=== PATIENT | male | born 1985 | race Hispanic/Latino ===

== ENCOUNTER 2019-03-09 06:45 | Emergency (ER) | payer SELFPAY ==
[2019-03-09] MEDS ORDERED: dexAMETHasone 10 MG/ML VIAL ONE (08:17)
[2019-03-09] MEDS ORDERED: CEFTRIAXONE 1000 MG/VIAL ONE (08:17)
--- NOTE | 2019-03-09 08:17 | ER ---
Nurse's Notes [facility] Name: Rahul Acevedo Age: 33 yrs Sex: Male : 1985 Arrival Date: 03/09/2019 Time: 06:48 Bed 14 Private MD: Diagnosis: Acute pharyngitis Presentation: 03/09 07:01 Presenting complaint: Patient states: i feel like my throat is swollen or theres a lump tw2 in my throat, i threw up this morning 2 times with blood in it. Transition of care: patient was not received from another setting of care. Onset of symptoms was March 09, 2019. Risk Assessment: Do you want to hurt yourself or someone else? Patient reports no desire to harm self or others. Initial Sepsis Screen: Does the patient meet any 2 criteria? No. Patient's initial sepsis screen is negative. Does the patient have a suspected source of infection? No. Patient's initial sepsis screen is negative. Care prior to arrival: None. 07:01 Method Of Arrival: Ambulatory tw2 07:01 Acuity: RHONDA 3 tw2 Triage Assessment: 07:03 General: Appears in no apparent distress. well groomed, Behavior is calm, cooperative, tw2 appropriate for age. Pain: Complains of pain in uvula, left aspect of posterior pharynx and right aspect of posterior pharynx. Historical: - Allergies: 07:04 No Known Allergies; tw2 - Home Meds: 07:04 None [Active]; tw2 - PMHx: 07:04 None; tw2 - PSHx: 07:04 None; tw2 - Immunization history:: Adult Immunizations. - Social history:: Smoking status: . - Ebola Screening: : Patient denies travel to an Ebola-affected area in the 21 days before illness onset. - Family history:: not pertinent. Screenin:57 Abuse screen: Denies threats or abuse. Nutritional screening: No deficits noted. tw2 Tuberculosis screening: No symptoms or risk factors identified. Fall Risk None identified. Assessment: 07:04 General: Appears in no apparent distress. well groomed, Behavior is calm, cooperative, tw2 appropriate for age. Pain: Complains of pain in uvula, left aspect of posterior pharynx and right aspect of posterior pharynx. Neuro: Level of Consciousness is awake, alert, obeys commands, Oriented to person, place, time, situation. Cardiovascular: Heart tones S1 S2 Capillary refill Patient's skin is warm and dry. Respiratory: Airway is patent Respiratory effort is even, unlabored, Respiratory pattern is regular, symmetrical, Breath sounds are clear bilaterally. GI: Abdomen is flat, non-distended, Bowel sounds present X 4 quads. Reports vomiting, with blood in it. GI: Patient currently denies abdominal pain. : No signs and/or symptoms were reported regarding the genitourinary system. EENT: Throat is reddened has enlarged tonsils. Derm: No signs and/or symptoms reported regarding the dermatologic system. Musculoskeletal: Range of motion: intact in all extremities. 08:00 Reassessment: Patient appears in no apparent distress at this time. No changes from tw2 previously documented assessment. Patient and/or family updated on plan of care and expected duration. Pain level reassessed. Patient is alert, oriented x 3, equal unlabored respirations, skin warm/dry/pink. 09:02 Reassessment: Patient appears in no apparent distress at this time. No changes from tw2 previously documented assessment. Patient and/or family updated on plan of care and expected duration. Pain level reassessed. Patient is alert, oriented x 3, equal unlabored respirations, skin warm/dry/pink. 09:20 Reassessment: Patient appears in no apparent distress at this time. No changes from tw2 previously documented assessment. Patient and/or family updated on plan of care and expected duration. Pain level reassessed. Patient is alert, oriented x 3, equal unlabored respirations, skin warm/dry/pink. Vital Signs: 07:02 BP 128 / 86; Pulse 93; Resp 18; Temp 98.2(O); Pulse Ox 99% on R/A; Weight 95.25 kg (R); tw2 Height 5 ft. 6 in. (167.64 cm); Pain 8/10; 08:00 BP 123 / 72; Pulse 87; Resp 17; Pulse Ox 100% on R/A; tw2 09:01 BP 123 / 73; Pulse 76; Resp 17; Pulse Ox 100% on R/A; tw2 07:02 Body Mass Index 33.89 (95.25 kg, 167.64 cm) tw2 ED Course: 06:48 Patient arrived in ED. ds1 06:56 Pascale Davis, RN is Primary Nurse. tw2 06:56 Bed in low position. Call light in reach. tw2 07:02 Triage completed. tw2 07:03 Arm band placed on. tw2 07:18 Deshawn Suárez MD is Attending Physician. bishnu 08:22 Awaiting radiology results. Awaiting for x-ray, Awaiting: PRIOR to discharge. tw2 08:27 X-ray completed. Portable x-ray completed in exam room. Patient tolerated procedure jb2 well. 08:30 Chest Single View XRAY In Process Unspecified. EDMS 09:20 No provider procedures requiring assistance completed. Patient did not have IV access tw2 during this emergency room visit. Administered Medications: 08:25 Drug: Decadron 10 mg Route: IM; Site: left deltoid; tw2 09:20 Follow up: Response: No adverse reaction tw2 08:25 Drug: Rocephin (cefTRIAXone) 1 grams Route: IM; Site: right deltoid; tw2 09:20 Follow up: Response: No adverse reaction tw2 08:28 Drug: Augmentin 875 mg Route: PO; tw2 09:20 Follow up: Response: No adverse reaction tw2 Outcome: 08:17 Discharge ordered by . bishnu 09:20 Discharged to home ambulatory. tw2 09:20 Condition: stable 09:20 Discharge instructions given to patient, Instructed on discharge instructions, follow up and referral plans. medication usage, Demonstrated understanding of instructions, follow-up care, medications, Prescriptions given X 3. 09:21 Patient left the ED. tw2 Signatures: Dispatcher [employer] EDNJ Deshawn Suárez MD MD cha Buechter, Jesse Sammie Jacobson ds1 Pascale Davis, RN RN tw2
--- NOTE | 2019-03-09 08:17 | EDPHYS ---
Physician Documentation [facility] Name: Rahul Acevedo Age: 33 yrs Sex: Male : 1985 Arrival Date: 03/09/2019 Time: 06:48 Bed 14 Private MD: ED Physician Deshawn Suárez HPI: 03/09 08:13 This 33 yrs old Male presents to ER via Ambulatory with complaints of Vomiting bishnu Blood, Tongue Pain. 08:13 The patient or guardian reports cough, difficulty breathing. Onset: The bishnu symptoms/episode began/occurred 2 day(s) ago. Modifying factors: The symptoms are alleviated by nothing. the symptoms are aggravated by nothing. The patient or guardian reports airway noise. Severity of symptoms: At their worst the symptoms were mild, in the emergency department the symptoms are unchanged. Associated signs and symptoms: The patient has no apparent associated signs or symptoms. Modifying factors: The symptoms are alleviated by nothing, the symptoms are aggravated by nothing. Severity of symptoms: At their worst the symptoms were mild in the emergency department the symptoms are unchanged. Historical: - Allergies: 07:04 No Known Allergies; tw2 - Home Meds: 07:04 None [Active]; tw2 - PMHx: 07:04 None; tw2 - PSHx: 07:04 None; tw2 - Immunization history:: Adult Immunizations. - Social history:: Smoking status: . - Ebola Screening: : Patient denies travel to an Ebola-affected area in the 21 days before illness onset. - Family history:: not pertinent. ROS: 08:13 Constitutional: Negative for fever, chills, and weight loss, Eyes: Negative for injury, bishnu pain, redness, and discharge, Neck: Negative for injury, pain, and swelling, Cardiovascular: Negative for chest pain, palpitations, and edema, Abdomen/GI: Negative for abdominal pain, nausea, vomiting, diarrhea, and constipation, Back: Negative for injury and pain, : Negative for injury, bleeding, discharge, and swelling, MS/Extremity: Negative for injury and deformity, Skin: Negative for injury, rash, and discoloration, Neuro: Negative for headache, weakness, numbness, tingling, and seizure, Psych: Negative for depression, anxiety, suicide ideation, homicidal ideation, and hallucinations, Allergy/Immunology: Negative for hives, rash, and allergies, Endocrine: Negative for neck swelling, polydipsia, polyuria, polyphagia, and marked weight changes, Hematologic/Lymphatic: Negative for swollen nodes, abnormal bleeding, and unusual bruising. 08:13 ENT: Positive for difficulty swallowing. 08:13 Respiratory: Positive for cough. Exam: 08:13 Constitutional: This is a well developed, well nourished patient who is awake, alert, bishnu and in no acute distress. Head/Face: Normocephalic, atraumatic. Eyes: Pupils equal round and reactive to light, extra-ocular motions intact. Lids and lashes normal. Conjunctiva and sclera are non-icteric and not injected. Cornea within normal limits. Periorbital areas with no swelling, redness, or edema. Neck: Trachea midline, no thyromegaly or masses palpated, and no cervical lymphadenopathy. Supple, full range of motion without nuchal rigidity, or vertebral point tenderness. No Meningismus. Chest/axilla: Normal chest wall appearance and motion. Nontender with no deformity. No lesions are appreciated. Cardiovascular: Regular rate and rhythm with a normal S1 and S2. No gallops, murmurs, or rubs. Normal PMI, no JVD. No pulse deficits. Respiratory: Lungs have equal breath sounds bilaterally, clear to auscultation and percussion. No rales, rhonchi or wheezes noted. No increased work of breathing, no retractions or nasal flaring. Abdomen/GI: Soft, non-tender, with normal bowel sounds. No distension or tympany. No guarding or rebound. No evidence of tenderness throughout. Back: No spinal tenderness. No costovertebral tenderness. Full range of motion. Skin: Warm, dry with normal turgor. Normal color with no rashes, no lesions, and no evidence of cellulitis. MS/ Extremity: Pulses equal, no cyanosis. Neurovascular intact. Full, normal range of motion. Neuro: Awake and alert, GCS 15, oriented to person, place, time, and situation. Cranial nerves II-XII grossly intact. Motor strength 5/5 in all extremities. Sensory grossly intact. Cerebellar exam normal. Normal gait. Psych: Awake, alert, with orientation to person, place and time. Behavior, mood, and affect are within normal limits. 08:13 ENT: Posterior pharynx: Tonsils: bilaterally enlarged, with erythema, Uvula: midline, edematous, erythema, swelling, that is mild, that is moderate, erythema, that is mild, exudate, is not appreciated, peritonsillar mass, is not appreciated, pooling of secretions, is not appreciated. Vital Signs: 07:02 BP 128 / 86; Pulse 93; Resp 18; Temp 98.2(O); Pulse Ox 99% on R/A; Weight 95.25 kg (R); tw2 Height 5 ft. 6 in. (167.64 cm); Pain 8/10; 08:00 BP 123 / 72; Pulse 87; Resp 17; Pulse Ox 100% on R/A; tw2 09:01 BP 123 / 73; Pulse 76; Resp 17; Pulse Ox 100% on R/A; tw2 07:02 Body Mass Index 33.89 (95.25 kg, 167.64 cm) tw2 MDM: 07:18 Patient medically screened. [facility] 08:16 Data reviewed: vital signs, nurses notes, radiologic studies. [facility] 03/09 08:13 Order name: Chest Single View XRAY [facility] Administered Medications: 08:25 Drug: Decadron 10 mg Route: IM; Site: left deltoid; tw2 09:20 Follow up: Response: No adverse reaction tw2 08:25 Drug: Rocephin (cefTRIAXone) 1 grams Route: IM; Site: right deltoid; tw2 09:20 Follow up: Response: No adverse reaction tw2 08:28 Drug: Augmentin 875 mg Route: PO; tw2 09:20 Follow up: Response: No adverse reaction 2 Disposition: 03/09/19 08:17 Discharged to Home. Impression: Acute pharyngitis. - Condition is Stable. - Discharge Instructions: Pharyngitis, Pharyngitis, [id number], Sore Throat, [id number]. - Prescriptions for Augmentin 875- 125 mg Oral Tablet - take 1 tablet by ORAL route every 12 hours for 10 days; 20 tablet. Elyssa- D 12 Hour 60-120 mg Oral Tablet Sustained Release 12 hr - take 1 tablet by ORAL route every 12 hours As needed; 20 tablet. Medrol (Blaine) 4 mg Oral Tablets, Dose Pack - take 1 tablet by ORAL route as directed - follow package instructions; 1 packet. - Medication Reconciliation Form, Thank You Letter, Antibiotic Education, Prescription Opioid Use, Work release form form. - Follow up: Private Physician; When: 2 - 3 days; Reason: Recheck today's complaints, Continuance of care, Re-evaluation by your physician. - Problem is new. - Symptoms have improved. Signatures: Dispatcher [employer] EDDeshawn Brumfield MD MD cha Wise, Tara RN RN tw2 Corrections: (The following items were deleted from the chart) 09:21 08:17 03/09/2019 08:17 Discharged to Home. Impression: Acute pharyngitis. Condition is tw2 Stable. Forms are Work release form, Medication Reconciliation Form, Thank You Letter, Antibiotic Education, Prescription Opioid Use. Follow up: Private Physician; When: 2 - 3 days; Reason: Recheck today's complaints, Continuance of care, Re-evaluation by your physician. Problem is new. Symptoms have improved. bishnu
[2019-03-09] MEDS ORDERED: AMOX/K CLAV 875 MG TAB ONE (08:18)
[2019-03-09] MEDS ORDERED: WATER FOR INJ,STERILE 10 ML ONE (08:18)
--- NOTE | 2019-03-09 09:24 | RAD REPORT ---
EXAM DESCRIPTION: RAD - Chest Single View - 03/09/2019 8:28 am CLINICAL HISTORY: Cough COMPARISON: None. TECHNIQUE: AP portable chest image was obtained 0822 hours . FINDINGS: Lungs are under inflated. This accentuates interstitial pattern. Focal consolidation, fail ure and volume overload are not suspected. Heart and vasculature are normal. No measurable pleural ef fusion and no pneumothorax. No acute bony abnormality seen. No acute aortic findings suspected. IMPRESSION: No acute cardiopulmonary process.
[2019-03-09 09:27] VITALS: TEMP 98.2
[2019-03-09 09:28] VITALS: O2SAT 100
[2019-03-09 09:30] VITALS: BP 123/73
== END 2019-03-09 09:21 | disposition home or self-care (01) ==
LOC: ER 06:45
DX: J02.9 Acute pharyngitis, unspecified (principal)
CPT/HCPCS: 71045; 96372; 99283; J1100

== ENCOUNTER 2019-03-25 17:26 | Emergency (ER) | payer SELFPAY ==
[2019-03-25] MEDS ORDERED: CLINDAMYCIN 600MG/D5W 600 MG/50 ML BAG IV ONE (17:39)
[2019-03-25] MEDS ORDERED: KETOROLAC 30 MG/ML INJ ONE (17:39)
[2019-03-25 17:57] LABS: Absolute Lymphocytes (CBC) 1.7 K/uL (0.7-4.9); Basophils % 0.5 % (0-1.3); Hematocrit 38.5 % (39.6-49.0); Lymphocytes % 18.2 % (15.3-44.8); MPV 7.3 fL (7.6-11.3); RBC Red Blood Cell Count 4.19 M/uL (4.33-5.43)
[2019-03-25 18:11] LABS: Potassium 3.8 mmol/L (3.5-5.1)
--- NOTE | 2019-03-25 19:08 | ER ---
Nurse's Notes [facility] Name: Rahul Acevedo Age: 33 yrs Sex: Male : 1985 Arrival Date: 03/25/2019 Time: 17:28 Bed 17 Private MD: Diagnosis: Cellulitis of left upper limb-left hand Presentation: 03/25 17:32 Presenting complaint: Patient states: left hand swelling and redness started last night sv and then today started feeling it on the left ankle. Transition of care: patient was not received from another setting of care. Onset of symptoms was March 24, 2019. Risk Assessment: Do you want to hurt yourself or someone else? Patient reports no desire to harm self or others. Initial Sepsis Screen: Does the patient meet any 2 criteria? HR > 90 bpm. No. Patient's initial sepsis screen is negative. Does the patient have a suspected source of infection? No. Patient's initial sepsis screen is negative. Care prior to arrival: None. 17:32 Method Of Arrival: Ambulatory sv 17:32 Acuity: RHONDA 3 sv Historical: - Allergies: 17:33 No Known Allergies; sv - PMHx: 17:33 None; sv - PSHx: 17:33 None; sv - Immunization history:: Flu vaccine is not up to date. - Social history:: Smoking status: Patient/guardian denies using tobacco. - Ebola Screening: : No symptoms or risks identified at this time. Screenin:55 Abuse screen: Denies threats or abuse. Nutritional screening: No deficits noted. em Tuberculosis screening: No symptoms or risk factors identified. Fall Risk None identified. Assessment: 17:55 General: Appears in no apparent distress. uncomfortable, Behavior is calm, cooperative, em Denies fever. Pain: Complains of pain in left hand and left foot Pain currently is 8 out of 10 on a pain scale. Pain began 1 day ago. Neuro: Level of Consciousness is awake, alert, obeys commands, Oriented to person, place, time, situation, Appropriate for age. Cardiovascular: Capillary refill < 3 seconds Patient's skin is warm and dry. Respiratory: Airway is patent Respiratory effort is even, unlabored, Respiratory pattern is regular, symmetrical. Derm: Skin is intact, is healthy with good turgor, Skin is red, to left hand. Musculoskeletal: Circulation, motion, and sensation intact. Capillary refill < 3 seconds, Range of motion: intact in all extremities, Swelling present in left hand. 19:10 Reassessment: Patient appears in no apparent distress at this time. Patient and/or cc3 family updated on plan of care and expected duration. Pain level reassessed. Patient is alert, oriented x 3, equal unlabored respirations, skin warm/dry/pink. Received this male patient from morning shift [facility] as a case of cellulitis to his left hand, with IV cannula gauge 20 at the right ACV saline locked. Patient denies pain at this time. Patient states feeling better. Patient states symptoms have improved. General: Appears in no apparent distress. comfortable, Behavior is calm, cooperative, appropriate for age. Pain: Complains of pain in dorsum of left hand. Neuro: Level of Consciousness is awake, alert, obeys commands, Oriented to person, place, time, situation, Appropriate for age. Cardiovascular: Denies chest pain, Capillary refill < 3 seconds in bilateral fingers Patient's skin is warm and dry. Respiratory: Airway is patent Respiratory effort is even, unlabored, Respiratory pattern is regular, symmetrical, Breath sounds are clear bilaterally. GI: Abdomen is round non-distended, Bowel sounds present X 4 quads. Abd is soft and non tender X 4 quads. : No signs and/or symptoms were reported regarding the genitourinary system. EENT: No signs and/or symptoms were reported regarding the EENT system. Derm: Skin is intact, is healthy with good turgor, Skin is pink, warm \T\ dry. normal. Musculoskeletal: Circulation, motion, and sensation intact. Range of motion: intact in all extremities, Swelling present in dorsum of left hand. 19:20 Reassessment: Patient appears in no apparent distress at this time. Patient and/or cc3 family updated on plan of care and expected duration. Pain level reassessed. Patient is alert, oriented x 3, equal unlabored respirations, skin warm/dry/pink. JASWANT Puga discharged the patient home with prescription given. IV cannula removed and patient left ER vitally stable and ambulatory. No valuables left in the patient's room. Patient denies pain at this time. Patient states feeling better. Patient states symptoms have improved. Vital Signs: 17:33 BP 146 / 108; Pulse 95; Resp 18; Temp 98.2; Pulse Ox 100% ; Weight 95.25 kg; Height 5 sv ft. 6 in. (167.64 cm); 18:34 BP 139 / 67; Pulse 102; Resp 18; Pulse Ox 99% on R/A; Pain 6/10; em 19:15 BP 139 / 76; Pulse 91; Resp 16 S; Temp 98.4(O); Pulse Ox 99% on R/A; Pain 0/10; cc3 17:33 Body Mass Index 33.89 (95.25 kg, 167.64 cm) sv ED Course: 17:28 Patient arrived in ED. mr 17:31 Polina Puga, XIOMARA is PHCP. kb 17:31 Te Lara MD is Attending Physician. kb 17:33 Triage completed. sv 17:34 Arm band placed on. sv 17:39 Khai Royal LVN is Primary Nurse. em 17:55 Patient has correct armband on for positive identification. Bed in low position. Call em light in reach. Adult w/ patient. Pulse ox on. NIBP on. 17:55 Initial lab(s) drawn, by me, sent to lab. Inserted saline lock: 20 gauge in left em antecubital area, using aseptic technique. Blood collected. 18:07 Hand Left 2 View XRAY In Process Unspecified. EDMS 18:07 Foot Left 2 View XRAY In Process Unspecified. EDMS 19:20 No provider procedures requiring assistance completed. IV discontinued, intact, cc3 bleeding controlled, No redness/swelling at site. Pressure dressing applied. Administered Medications: 17:48 Drug: TORadol - Ketorolac 15 mg Route: IVP; Site: right antecubital; iw 18:33 Follow up: Response: No adverse reaction; Pain is decreased em 17:49 Drug: Clindamycin 600 mg Route: IVPB; Infused Over: 30 mins; Site: right antecubital; em 18:33 Follow up: Response: No adverse reaction; IV Status: Completed infusion; IV Intake: 50mlem Intake: 18:33 IV: 50ml; Total: 50ml. em Outcome: 19:07 Discharge ordered by . kb 19:20 Discharged to home ambulatory. cc3 19:20 Condition: stable 19:20 Discharge instructions given to patient, Instructed on discharge instructions, follow up and referral plans. medication usage, Demonstrated understanding of instructions, follow-up care, medications, Prescriptions given X 1. 19:23 Patient left the ED. cc3 Signatures: Dispatcher [employer] Polina Mathews, XIOMARA DEVLIN-Sayda Leslie, RN RN rishi Angely Cruz, Khai, UPSET WELDING MACHINE OPERATOR UPSET WELDING MACHINE OPERATOR Jessica Arroyo RN RN iw Cordel, Charlene cc3 Corrections: (The following items were deleted from the chart) 23:58 19:10 Reassessment: Patient appears in no apparent distress at this time. Patient cc3 and/or family updated on plan of care and expected duration. Pain level reassessed. Patient is alert, oriented x 3, equal unlabored respirations, skin warm/dry/pink. Received this male patient from morning shift [facility] as a case of cellulitis to his left hand, with IV cannula gauge 20 at the right ACV saline locked. Patient denies pain at this time. Patient states feeling better. Patient states symptoms have improved. cc3 03/26 00:01 03/25 19:10 Reassessment: Patient appears in no apparent distress at this time. Patient cc3 and/or family updated on plan of care and expected duration. Pain level reassessed. Patient is alert, oriented x 3, equal unlabored respirations, skin warm/dry/pink. Received this male patient from morning shift [facility] as a case of cellulitis to his left hand, with IV cannula gauge 20 at the left ACV saline locked. Patient denies pain at this time. Patient states feeling better. Patient states symptoms have improved. cc3
--- NOTE | 2019-03-25 19:08 | EDPHYS ---
Physician Documentation [facility] Name: Rahul Acevedo Age: 33 yrs Sex: Male : 1985 Arrival Date: 03/25/2019 Time: 17:28 Bed 17 Private MD: ED Physician Te Lara HPI: 03/25 19:20 This 33 yrs old Male presents to ER via Ambulatory with complaints of Hand kb Swelling. 19:21 The patient presents with cellulitis of the dorsum of left hand. Description: kb erythematous, hot, swollen. Onset: The symptoms/episode began/occurred this morning. Possible cause(s): unknown. Associated signs and symptoms: Pertinent positives: erythema, swelling. Modifying factors: the symptoms are alleviated by nothing, the symptoms are aggravated by nothing. Severity of symptoms: At their worst the symptoms were moderate, in the emergency department the symptoms are unchanged. The patient has not experienced similar symptoms in the past. The patient has not recently seen a physician. Historical: - Allergies: 17:33 No Known Allergies; sv - PMHx: 17:33 None; sv - PSHx: 17:33 None; sv - Immunization history:: Flu vaccine is not up to date. - Social history:: Smoking status: Patient/guardian denies using tobacco. - Ebola Screening: : No symptoms or risks identified at this time. ROS: 19:19 Constitutional: Negative for fever, chills, and weight loss, ENT: Negative for injury, kb pain, and discharge, Neck: Negative for injury, pain, and swelling, Cardiovascular: Negative for chest pain, palpitations, and edema, Respiratory: Negative for shortness of breath, cough, wheezing, and pleuritic chest pain, Abdomen/GI: Negative for abdominal pain, nausea, vomiting, diarrhea, and constipation, Neuro: Negative for headache, weakness, numbness, tingling, and seizure. 19:19 MS/extremity: Positive for pain, of the instep of left foot. 19:19 Skin: Positive for erythema, swelling, of the dorsum of left hand. Exam: 19:19 Constitutional: This is a well developed, well nourished patient who is awake, alert, kb and in no acute distress. Head/Face: Normocephalic, atraumatic. ENT: Nares patent. No nasal discharge, no septal abnormalities noted. Tympanic membranes are normal and external auditory canals are clear. Oropharynx with no redness, swelling, or masses, exudates, or evidence of obstruction, uvula midline. Mucous membranes moist. Neck: Trachea midline, no thyromegaly or masses palpated, and no cervical lymphadenopathy. Supple, full range of motion without nuchal rigidity, or vertebral point tenderness. No Meningismus. Chest/axilla: Normal chest wall appearance and motion. Nontender with no deformity. No lesions are appreciated. Cardiovascular: Regular rate and rhythm with a normal S1 and S2. No gallops, murmurs, or rubs. Normal PMI, no JVD. No pulse deficits. Respiratory: Lungs have equal breath sounds bilaterally, clear to auscultation and percussion. No rales, rhonchi or wheezes noted. No increased work of breathing, no retractions or nasal flaring. Abdomen/GI: Soft, non-tender, with normal bowel sounds. No distension or tympany. No guarding or rebound. No evidence of tenderness throughout. Back: No spinal tenderness. No costovertebral tenderness. Full range of motion. MS/ Extremity: Pulses equal, no cyanosis. Neurovascular intact. Full, normal range of motion. Neuro: Awake and alert, GCS 15, oriented to person, place, time, and situation. Cranial nerves II-XII grossly intact. Motor strength 5/5 in all extremities. Sensory grossly intact. Cerebellar exam normal. Normal gait. 19:19 Skin: cellulitis, that is mild, that is moderate, on the dorsum of left hand. Vital Signs: 17:33 BP 146 / 108; Pulse 95; Resp 18; Temp 98.2; Pulse Ox 100% ; Weight 95.25 kg; Height 5 sv ft. 6 in. (167.64 cm); 18:34 BP 139 / 67; Pulse 102; Resp 18; Pulse Ox 99% on R/A; Pain 6/10; em 19:15 BP 139 / 76; Pulse 91; Resp 16 S; Temp 98.4(O); Pulse Ox 99% on R/A; Pain 0/10; cc3 17:33 Body Mass Index 33.89 (95.25 kg, 167.64 cm) sv MDM: 17:31 Patient medically screened. kb 19:19 Data reviewed: vital signs, nurses notes. Data interpreted: Pulse oximetry: on room air kb is 99 %. Interpretation: normal. Counseling: I had a detailed discussion with the patient and/or guardian regarding: the historical points, exam findings, and any diagnostic results supporting the discharge/admit diagnosis, lab results, radiology results, the need for outpatient follow up, a family practitioner, to return to the emergency department if symptoms worsen or persist or if there are any questions or concerns that arise at home. 03/25 17:36 Order name: CBC with Diff; Complete Time: 18:00 kb 03/25 17:36 Order name: Basic Metabolic Panel; Complete Time: 18:12 kb 03/25 17:36 Order name: Hand Left 2 View XRAY kb 03/25 17:36 Order name: Foot Left 2 View XRAY kb 03/25 17:36 Order name: IV Start; Complete Time: 17:49 kb Administered Medications: 17:48 Drug: TORadol - Ketorolac 15 mg Route: IVP; Site: right antecubital; iw 18:33 Follow up: Response: No adverse reaction; Pain is decreased em 17:49 Drug: Clindamycin 600 mg Route: IVPB; Infused Over: 30 mins; Site: right antecubital; em 18:33 Follow up: Response: No adverse reaction; IV Status: Completed infusion; IV Intake: 50mlem Disposition: 03/26 07:45 Co-signature as Attending Physician, Te Lara MD I agree with the assessment and kdr plan of care. Disposition: 03/25/19 19:07 Discharged to Home. Impression: Cellulitis of left upper limb - left hand. - Condition is Stable. - Discharge Instructions: Cellulitis, Adult, [id number]. - Prescriptions for Clindamycin HCl 300 mg Oral Capsule - take 1 capsule by ORAL route every 6 hours for 10 days; 40 capsule. - Medication Reconciliation Form, Thank You Letter, Antibiotic Education, Prescription Opioid Use, Work release form form. - Follow up: Emergency Department; When: As needed; Reason: Worsening of condition. Follow up: Private Physician; When: 2 - 3 days; Reason: Recheck today's complaints, Continuance of care, Re-evaluation by your physician. Signatures: Dispatcher [employer] Polina Mathews, QUITA-Sayda Mccallum RN RN sv Rittger, Kevin, MD MD kdr Royal, Khai, HUMAN MACHINE INTERFACE ENGINEER HUMAN MACHINE INTERFACE ENGINEER em Jessica Guerrero RN RN Kylee Castro cc3 Corrections: (The following items were deleted from the chart) 03/25 19:23 19:07 03/25/2019 19:07 Discharged to Home. Impression: Cellulitis of left upper limb - cc3 left hand. Condition is Stable. Forms are Medication Reconciliation Form, Thank You Letter, Antibiotic Education, Prescription Opioid Use. Follow up: Emergency Department; When: As needed; Reason: Worsening of condition. Follow up: Private Physician; When: 2 - 3 days; Reason: Recheck today's complaints, Continuance of care, Re-evaluation by your physician. kb
--- NOTE | 2019-03-25 19:59 | RAD REPORT ---
EXAM DESCRIPTION: RAD - Foot Left 2 View - 03/25/2019 6:07 pm CLINICAL HISTORY: Nontraumatic left foot pain COMPARISON: None. FINDINGS: Transverse fracture is present at the base of the fifth metatarsal. No significant distrac tion or angulation deformity. No fracture, dislocation or periosteal reaction elsewhere in the foot. No air or foreign body in the soft tissues. IMPRESSION: Fracture base of the fifth metatarsal. No significant distraction or angulation lance leija
--- NOTE | 2019-03-25 20:00 | RAD REPORT ---
EXAM DESCRIPTION: RAD - Hand Left 2 View - 03/25/2019 6:07 pm CLINICAL HISTORY: Nontraumatic left hand pain COMPARISON: None. FINDINGS: No fracture is identified. There is no dislocation or periosteal reaction noted. No foreig n body. Soft tissue swelling present over the dorsum of the hand. . IMPRESSION: Soft tissue swelling without air or foreign body. No acute bone or joint finding.
[2019-03-25 20:03] VITALS: TEMP 98.2
[2019-03-25 20:05] VITALS: BP 139/67; O2SAT 99
== END 2019-03-25 19:23 | disposition home or self-care (01) ==
LOC: ER 17:26
DX: L03.114 Cellulitis of left upper limb (principal)
CPT/HCPCS: 36415; 80048; 85025; 96365; 96375; 99284